=== PATIENT | female | born 1955 | race African-American/Black ===

== ENCOUNTER 2019-07-07 13:23 | Emergency (ER) | payer OTHER ==
[~2019-07-07] VITALS: Ht 157.5 cm; Wt 62.6 kg
[2019-07-07] MEDS ORDERED: ENALAPRIL MALEA10 MG PO (13:29)
[2019-07-07] MEDS ORDERED: VERAPAMIL ER120 MG PO (13:29)
[2019-07-07] MEDS ORDERED: IMIPRAMINE HCL50 MG PO (13:30)
== END 2019-07-07 18:43 | disposition home or self-care (01) ==
LOC: ER 13:23
DX: R00.2 Palpitations (principal)

== ENCOUNTER 2020-03-21 15:02 | Emergency (ER) | payer OTHER ==
[~2020-03-21] VITALS: Ht 154.9 cm; Wt 60.8 kg
[~2020-03-21 15:02] MED LIST: ENALAPRIL MALEA10 MG PO; IMIPRAMINE HCL50 MG PO; VERAPAMIL ER120 MG PO
[2020-03-21] MEDS ORDERED: LISINOPRIL10 MG (15:33)
[2020-03-21] MEDS ORDERED: MOTION-TIME25 MG PO (16:25)
== END 2020-03-21 16:43 | disposition home or self-care (01) ==
LOC: ER 15:02
DX: M62.838 Other muscle spasm (principal); R42 Dizziness and giddiness; M54.2 Cervicalgia; Z03.818 Encounter for observation for suspected exposure to other biological agents ruled out